=== PATIENT | female | born 1995 | race Two or more races ===

== ENCOUNTER 2023-09-16 18:58 | Emergency (ER) | payer OTHER ==
[~2023-09-16] VITALS: Ht 157.5 cm; Wt 66.7 kg
[2023-09-16] MEDS ORDERED: PRENA1 TRUE CO1 EACH PO (19:14)
[2023-09-16 20:39] LABS: HEMATOCRIT 38.6 % (36.0-45.00); HEMOGLOBIN 13.6 g/dL (12.0-15.00); MEAN CELL VOLUME 87.3 fL (80.00-100.00); MEAN CORPUSCULAR HEMOGLOBIN 30.7 pg (27.00-32.0); MEAN CORPUSCULAR HGB CONC 35.2 g/dl (32.0-36.0); PLATELET COUNT 294 K/uL (150-450); RED BLOOD COUNT 4.43 M/uL (4.00-6.00); RED CELL DISTRIBUTION WIDTH 13.3 % (11.5-14.5)
== END 2023-09-16 22:38 | disposition home or self-care (01) ==
LOC: ER 18:59
PROVIDERS: Emergency Medicine
DX: O20.8 Other hemorrhage in early pregnancy (principal); Z3A.10 10 weeks gestation of pregnancy

== ENCOUNTER 2024-03-24 11:48 | Outpatient (CLI) | payer OTHER ==
[~2024-03-24 11:48] MED LIST: PRENA1 TRUE CO1 EACH PO
== END 2024-03-24 16:21 | disposition home or self-care (01) ==
LOC: OBS/DEL 11:48 → LDR 11:50 → OBS/DEL 14:34
PROVIDERS: ATTEND Obstetrics & Gynecology
DX: O24.419 Gestational diabetes mellitus in pregnancy, unspecified control (principal); Z3A.34 34 weeks gestation of pregnancy

== ENCOUNTER 2024-04-07 08:06 | Inpatient (IN) | payer OTHER ==
[~2024-04-07] VITALS: Ht 157.5 cm; Wt 73.9 kg
[2024-04-07 09:06] LABS: HEMATOCRIT 36.8 % (36.0-45.00); HEMOGLOBIN 12.8 g/dL (12.0-15.00); MEAN CELL VOLUME 89.2 fL (80.00-100.00); MEAN CORPUSCULAR HEMOGLOBIN 31.2 pg (27.00-32.0); MEAN CORPUSCULAR HGB CONC 34.9 g/dl (32.0-36.0); PLATELET COUNT 230 K/uL (150-450); RED BLOOD COUNT 4.12 M/uL (4.00-6.00)
[2024-04-07 09:11] LABS: PH,URINE 6.5 (5.0-8.0); URINE APPEARANCE Clear; URINE BILIRRUBIN Negative (NEGATIVE); URINE BLOOD Small; URINE COLOR Yellow; URINE GLUCOSE Negative (NEGATIVE); URINE KETONE 15 (NEGATIVE); URINE LEUKOCYTE Trace; URINE NITRATE Negative
[2024-04-07 09:13] LABS: URINE BACTERIA 6185.3 uL (0.0-1933); URINE EPITHELIAL CELLS 75.4 uL (0.0-38.8); URINE RBC 114.3 uL (0.0-20.8); URINE WBC 40.9 uL (0.0-23.2)
[2024-04-07] MEDS ORDERED: MISOPROSTOL 25 MCG/4 ML GEL.W.APPL ONE (09:17)
[2024-04-07] MEDS ORDERED: MISOPROSTOL 25 MCG/4 ML GEL.W.APPL VAG STA (09:27)
[2024-04-07] MEDS ORDERED: RINGERS SOLUTION,LACTATED 1,000 ML IV SCH (09:30)
[2024-04-07 09:44] LABS: INR < 0.93; PARTIAL THROMBOPLASTIN TIME 28.3 SECONDS (22.0-34.0); PROTHROMBIN TIME 9.5 SECONDS (9.0-11.5)
[2024-04-07 10:01] LABS: ALBUMIN 2.7 gm/dL (3.4-5.0); BILIRUBIN TOTAL 0.3 mg/dL (0.3-1.2); CALCIUM 8.7 mg/dL (8.5-10.1); CREATININE SERUM 0.45 mg/dL (0.55-1.02); GFR 163.6; GLOBULINA 3.6 G/DL (2.4-3.5); POTASSIUM 3.84 mEq/L (3.5-5.1); TOTAL PROTEIN 6.3 gm/dL (6.4-8.2)
[2024-04-07 10:36] LABS: URINE CAST 0.15 uL (0.0-1.40); URINE PROTEIN 100 (NEGATIVE)
[2024-04-07] MEDS ORDERED: OXYTOCIN 20 UNITS/500ML RL PIGGYBAG IV ONE (13:42)
[2024-04-07] MEDS ORDERED: OXYTOCIN 20 UNITS/500ML RL PIGGYBAG IV SCH (14:30)
[2024-04-07] MEDS ORDERED: MORPHINE SULFATE 4 MG/ML VIAL IV STA (17:47)
[2024-04-07] MEDS ORDERED: MORPHINE SULFATE 4 MG/ML CARTRIDGE IV STA (17:50)
[2024-04-07] MEDS ORDERED: ERYTHROMYCIN BASE 1 GM TUBE OP ONE (20:47)
[2024-04-07] MEDS ORDERED: OXYTOCIN 20 UNITS/1000ML RL PIGGYBAG IV ONE (20:47)
[2024-04-07] MEDS ORDERED: CHLORHEXIDINE GLUCONATE 120 ML BOTTLE TOP ONE (20:47)
[2024-04-07] MEDS ORDERED: OXYTOCIN 10 UNITS/ML VIAL ONE (20:48)
[2024-04-07] MEDS ORDERED: LIDOCAINE HCL 1% 10ML VIAL ONE (20:48)
[2024-04-07] MEDS ORDERED: OXYTOCIN 10 UNITS/ML VIAL IM STA (22:54)
[2024-04-07] MEDS ORDERED: CHLORHEXIDINE GLUCONATE 120 ML BOTTLE TOP SCH (23:00)
[2024-04-07] MEDS ORDERED: OXYTOCIN 1,000 ML IV SCH (23:00)
[2024-04-07] MEDS ORDERED: ERYTHROMYCIN BASE 1 GM TUBE OP SCH (23:00)
[2024-04-07] MEDS ORDERED: IBUprofen 400 MG TABLET PO PRN (23:00)
[2024-04-07] MEDS ORDERED: LIDOCAINE HCL 1% 10ML VIAL IJ ONE (23:30)
[2024-04-08 06:33] LABS: HEMATOCRIT 35.4 % (36.0-45.00); HEMOGLOBIN 12.3 g/dL (12.0-15.00); MEAN CELL VOLUME 90.6 fL (80.00-100.00); MEAN CORPUSCULAR HEMOGLOBIN 31.5 pg (27.00-32.0); MEAN CORPUSCULAR HGB CONC 34.8 g/dl (32.0-36.0); PLATELET COUNT 217 K/uL (150-450); RED BLOOD COUNT 3.91 M/uL (4.00-6.00); RED CELL DISTRIBUTION WIDTH 13.6 % (11.5-14.5)
== END 2024-04-09 16:51 | disposition home or self-care (01) | DRG 807 ==
LOC: LDR 08:06 → OB/GYN 08:06
PROVIDERS: ADMIT Obstetrics & Gynecology; ATTEND Obstetrics & Gynecology
PROC: 10E0XZZ Delivery of Products of Conception, External Approach (ICD-10-PCS; principal; 2024-04-07)
PROC: 0W8NXZZ Division of Female Perineum, External Approach (ICD-10-PCS; 2024-04-07)
PROC: 3E033VJ Introduction of Other Hormone into Peripheral Vein, Percutaneous Approach (ICD-10-PCS; 2024-04-07)
PROC: 3E0P7VZ Introduction of Hormone into Female Reproductive, Via Natural or Artificial Opening (ICD-10-PCS; 2024-04-07)
PROC: 4A1HXCZ Monitoring of Products of Conception, Cardiac Rate, External Approach (ICD-10-PCS; 2024-04-07)
DX: O69.81X0 Labor and delivery complicated by cord around neck, without compression, not applicable or unspecified (principal); Z37.0 Single live birth; Z3A.39 39 weeks gestation of pregnancy; Z20.822 Contact with and (suspected) exposure to COVID-19